=== PATIENT | female | born 1940 | race African-American/Black ===

== ENCOUNTER 2019-01-18 15:15 | Emergency (ER) | payer MEDICARE, BC ==
[~2019-01-18] VITALS: Ht 152.4 cm; Wt 56.0 kg
[~2019-01-18 15:15] MED LIST: AMIT10TA6 PO; ASPI-1393 PO; ATEN-42 PO; CHOL100044 PO; ISOS30TA6 PO; SIMV40TA5 PO
[2019-01-18] MEDS ORDERED: CLONIDINE 0.1MG TABLET PO ONE (16:15)
[2019-01-18 17:30] VITALS: BP 163/76
== END 2019-01-18 18:03 | disposition home or self-care (01) ==
LOC: ER 15:15
DX: I10 Essential (primary) hypertension (principal); R05 Cough; Z87.440 Personal history of urinary (tract) infections; Z87.09 Personal history of other diseases of the respiratory system; Z98.890 Other specified postprocedural states; Z79.899 Other long term (current) drug therapy; Z88.6 Allergy status to analgesic agent
CPT/HCPCS: 71045; 99283

== ENCOUNTER → 2019-03-16 | Outpatient (CLI) | payer MEDICARE, BC ==
[~2019-03-16] MED LIST changes: -ASPI-1393 PO; +ASPI-1497 PO; +SIMV-46 PO; -SIMV40TA5 PO
== END | disposition home or self-care (01) ==
LOC: RAD 16:02
PROVIDERS: ATTEND Internal Medicine Nephrology
DX: R06.02 Shortness of breath (principal); J44.9 Chronic obstructive pulmonary disease, unspecified
CPT/HCPCS: 71046

== ENCOUNTER 2021-12-28 16:22 | Emergency (ER) | payer MEDICARE, BC ==
[~2021-12-28] VITALS: Ht 152.4 cm; Wt 50.0 kg
[~2021-12-28 16:22] MED LIST changes: -ISOS30TA6 PO; +ISOS30TA91 PO
[2021-12-28 16:30] VITALS: BP 197/93
[2021-12-28] MEDS ORDERED: GABA-532 MT (17:23)
[2021-12-28] MEDS ORDERED: TOPUD MT (17:23)
[2021-12-28] MEDS ORDERED: LIDO1ADH71 EXT (17:23)
[2021-12-28] MEDS ORDERED: VALA100044 MT (17:23)
== END 2021-12-28 17:44 | disposition home or self-care (01) ==
LOC: ER 16:22
DX: R21 Rash and other nonspecific skin eruption (principal); I10 Essential (primary) hypertension
CPT/HCPCS: 99281